=== PATIENT | male | born 1960 | race Hispanic/Latino ===

== ENCOUNTER 2018-04-29 22:11 | Inpatient (IN) | payer OTHER ==
[2018-04-29] MEDS ORDERED: Sodium Chloride 0.9% 1,000 ML IV STA (22:55)
--- NOTE | 2018-04-29 22:57 | ED PDOC ---
HPI: Male Pain Time Seen by Provider: 04/29/18 22:42 Chief Complaint (Nursing): Male Genitourinary History Per: Patient Onset/Duration Of Symptoms: Days (1) Current Symptoms Are (Timing): Still Present Severity: Moderate Quality Of Discomfort: Burning Associated Symptoms: denies: Fever, Chills Additional Complaint(s): Urgency, hematuria, dysuria x 1 day. denies fever or chills. S/p prostate biopsy 2 weeks ago was hospitalized for infection, finished PO antibiotics yesterday. Past Medical History Vital Signs: Last Vital Signs Temp 98.3 F 04/29/18 22:30 Pulse 86 04/29/18 22:30 Resp 16 04/29/18 22:30 BP 155/93 H 04/29/18 22:30 Pulse Ox 97 04/29/18 22:30 - Medical History PMH: No Chronic Diseases, Benign Prostatic Hyperplasia - Family History Family History: States: Unknown Family Hx - Allergies Allergies/Adverse Reactions: Allergies Allergy/AdvReac Type Severity Reaction Status Date / Time No Known Allergies Allergy Verified 04/29/18 22:29 Review of Systems Constitutional: Negative for: Fever, Chills Gastrointestinal: Negative for: Abdominal Pain Genitourinary Male: Positive for: Dysuria, Frequency, Hematuria Musculoskeletal: Negative for: Back Pain Physical Exam - Physical Exam Appears: Positive for: Non-toxic, No Acute Distress Skin: Positive for: Normal Color, Warm, DRY Cardiovascular/Chest: Positive for: Regular Rate, Rhythm Respiratory: Positive for: CNT, Normal Breath Sounds Gastrointestinal/Abdominal: Positive for: Bowel Sounds, Soft, Distended Male Genital Exam: Negative for: bleeding Back: Negative for: L CVA Tenderness, R CVA Tenderness - Laboratory Results Result Diagrams: 04/29/18 23:24 04/29/18 23:24 - ECG O2 Sat by Pulse Oximetry: 97 Medical Decision Making Medical Decision Making: Bladder scan reveals 8 ml post void Disposition - Clinical Impression Clinical Impression: Urinary tract infection - Patient ED Disposition Is Patient to be Admitted: Yes - Disposition Disposition Time: 23:56 Condition: FAIR Forms: [facility] (Lithuanian) - Pt Status Changed To: Hospital Disposition Of: Observation - POA Present On Arrival: None
[2018-04-29] MEDS ORDERED: Ciprofloxacin 400mg/200ml D5W 400 MG/200 ML BAG IVPB STA (23:17)
[2018-04-29] MEDS ORDERED: Ciprofloxacin 400mg/200ml D5W 400 MG/200 ML BAG IVPB ONE (23:29)
[2018-04-29 23:33] LABS: BASO # 0.1 K/uL (0.0-0.2); BASO % 0.6 % (0.0-2.0); EOS # 0.1 K/uL (0.0-0.7); EOS % 0.6 % (0.0-4.0); HEMOGLOBIN 12.9 g/dL (12.0-18.0); LYMPH # 1.1 K/uL (1.0-4.3); LYMPH % 9.9 % (20.0-40.0); MEAN CELL VOLUME 90.9 fl (80.0-94.0); MEAN CORPUSCULAR HGB CONC 34.2 g/dL (33.0-37.0); MEAN PLATELET VOLUME 7.3 fl (7.2-11.7); MONO # 0.8 K/uL (0.0-0.8); MONO % 7.4 % (0.0-10.0); NEUT % 81.5 % (50.0-75.0); NRBC % 0.1 % (0.0-0.0); PLATELET COUNT 283 K/uL (130-400); RBC 4.16 Mil/uL (4.40-5.90); RED CELL DISTRIBUTION WIDTH 13.5 % (11.5-14.5); WHITE BLOOD COUNT 11.1 K/uL (4.8-10.8)
[2018-04-29 23:43] LABS: SQUAMOUS EPITHIAL 6 /hpf (0-5); URINE BACTERIA RARE (<OCC); URINE BILIRUBIN NEGATIVE (NEGATIVE); URINE BLOOD LARGE (NEGATIVE); URINE CLARITY TURBID (Clear); URINE COLOR RED (YELLOW); URINE GLUCOSE (UA) NEG (Normal); URINE LEUKOCYTE ESTERASE MOD Leu/uL (Negative); URINE PROTEIN >=500 mg/dL (NEGATIVE); URINE UROBILINOGEN 0.2-1.0 mg/dL (0.2-1.0)
[2018-04-29 23:44] LABS: ALB/GLOB RATIO 1.1 (1.0-2.1); ALBUMIN 3.8 g/dL (3.5-5.0); ALT/SGPT 65 U/L (21-72); AST/SGOT 33 U/L (17-59); BLOOD UREA NITROGEN 13 mg/dl (9-20); GFR AFRICAN-AMERICAN > 60; GFR NON-AFRICAN AMERICAN > 60
[2018-04-30 00:11] LABS: EOSINOPHIL 1 % (0-7); LYMPHOCYTE 12 % (20-50); MONOCYTE 8 % (0-10); NEUTROPHIL 79 % (42-75); PLATELET ESTIMATE NORMAL (NORMAL); TOTAL CELLS COUNTED 100
[2018-04-30] MEDS: Levothyroxine 50 MCG TAB PO SCH (07:38)
[2018-04-30] MEDS: Ciprofloxacin 400mg/200ml D5W 400 MG/200 ML BAG IVPB SCH ×2 (09:43→20:26)
[2018-04-30] MEDS: Pantoprazole 40 mg EC Tab PO SCH (09:44)
--- NOTE | 2018-04-30 12:12 | CP.PCM.CON ---
History of Present Illness - History of Present Illness History of Present Illness: Infectious Disease Consultation Note- Asked to see this patient at the request of for UTI . HPI- Patient is a pleasant 57 year old male with pmh of BPH who underwent recent prostate Biopsy 3 weeks ago by his urologist and 3 days after the procedure pt. explains he started to experience some chills and nausea and urgency and went to see his urologist who administered IM abx at the office and instructed patient to go to hospital to be further treated with IV antibiotics. Pt. states he was at [facility] for 3 days receiving IV antibiotics and was d/ c home on oral antibiotics for another few days ( he does not recall the name of the antibiotics that he was given). he states he was on acidophilus while on antibiotics and was checked for c.diff at the other hospital and he was negative. Patient states he was doing well until yesterday during which time he started to have dysurea, urgency and also hematurea and hence he came to hospital to be further evaluated and treated. patient explains that he feels better today compared to yesterday post initiating antibiotics. he states his urine has also cleared up today . he states he also did experience some lower back pain yesterday but less today. denies any fever or chills. also pt. explains her prostate biopsy result was benign. Allergy- NKDA Review of Systems - Review of Systems Review of Systems: ROS- denies any fever or chills but had it the other day, denies any ALONSO, denies any cough or sob, denies any chest pain, mild lower abd pain, and lower right flank pian, had dysurea but less today, + urinary urgency, had hematurea but has resolved today. denies any diarrhea Past Patient History - Past Medical History & Family History Past Medical History?: Yes - Past Social History Smoking Status: Never Smoked Alcohol: Occasional Drugs: Denies Home Situation {Lives}: With Family - CARDIAC Hx Cardiac Disorders: No - PULMONARY Hx Respiratory Disorders: No - NEUROLOGICAL Hx Neurological Disorder: No - HEENT Hx HEENT Problems: No - RENAL Hx Chronic Kidney Disease: No - ENDOCRINE/METABOLIC Hx Endocrine Disorders: No - HEMATOLOGICAL/ONCOLOGICAL Hx Blood Disorders: No - INTEGUMENTARY Hx Dermatological Problems: No - MUSCULOSKELETAL/RHEUMATOLOGICAL Hx Falls: No - GASTROINTESTINAL Hx Gastrointestinal Disorders: No - GENITOURINARY/GYNECOLOGICAL Hx Genitourinary Disorders: No - PSYCHIATRIC Hx Psychophysiologic Disorder: No Hx Substance Use: No - SURGICAL HISTORY Hx Surgeries: Yes Other/Comment: Surgeries from Athletic injuries like Left shoulder rotator cuff , tendon - ANESTHESIA Hx Anesthesia: Yes Hx Anesthesia Reactions: No Hx Malignant Hyperthermia: No Has any member of the family had a problem w/ anesthesia?: No Meds Allergies/Adverse Reactions: Allergies Allergy/AdvReac Type Severity Reaction Status Date / Time No Known Allergies Allergy Verified 04/29/18 22:29 - Medications Medications: Current Medications Atorvastatin Calcium (Lipitor) 60 mg PO DAILY [facility] Last Admin: 04/30/18 09:44 Dose: 60 mg Finasteride (Proscar) 5 mg PO DAILY [facility] Last Admin: 04/30/18 09:44 Dose: 5 mg Ciprofloxacin (Cipro 400mg/200ml Dsw) 400 mg in 200 mls @ 200 mls/hr IVPB Q12 [facility] PRN Reason: Protocol Last Admin: 04/30/18 09:43 Dose: 200 mls/hr Levothyroxine Sodium (Synthroid) 50 mcg PO DAILY@0630 [facility] Last Admin: 04/30/18 07:38 Dose: 50 mcg Oxycodone/Acetaminophen (Percocet 5/325 Mg Tab) 1 tab PO Q4 PRN PRN Reason: Pain, moderate (4-7) Stop: 05/03/18 05:55 Pantoprazole Sodium (Protonix Ec Tab) 40 mg PO DAILY [facility] Last Admin: 04/30/18 09:44 Dose: 40 mg Tamsulosin HCl (Flomax) 0.8 mg PO DAILY [facility] Last Admin: 04/30/18 09:44 Dose: 0.8 mg Physical Exam - Constitutional Appears: Non-toxic, No Acute Distress - Head Exam Head Exam: ATRAUMATIC - Eye Exam Eye Exam: EOMI, PERRL - ENT Exam ENT Exam: Normal Oropharynx - Neck Exam Neck exam: Positive for: Full Rom - Respiratory Exam Respiratory Exam: Clear to Auscultation Bilateral, NORMAL BREATHING PATTERN - Cardiovascular Exam Cardiovascular Exam: RRR, +S1, +S2 - GI/Abdominal Exam GI & Abdominal Exam: Normal Bowel Sounds, Soft Additional comments: no distention minimal tenderness in Left lower abd. no guarding no rebound NO CVA tenderness - Extremities Exam Extremities exam: Positive for: normal inspection - Neurological Exam Neurological exam: Alert, Oriented x3 Results - Vital Signs Recent Vital Signs: Last Vital Signs Temp 97.7 F 04/30/18 07:45 Pulse 64 04/30/18 07:45 Resp 19 04/30/18 07:45 BP 115/74 04/30/18 07:45 Pulse Ox 95 04/30/18 07:45 - Labs Result Diagrams: 04/29/18 23:24 04/29/18 23:24 Labs: Laboratory Results - last 24 hr 04/29/18 04/29/18 04/29/18 23:24 23:24 23:24 WBC 11.1 H RBC 4.16 L Hgb 12.9 Hct 37.8 MCV 90.9 MCH 31.0 MCHC 34.2 RDW 13.5 Plt Count 283 MPV 7.3 Neut % (Auto) 81.5 H Lymph % (Auto) 9.9 L [place] % (Auto) 7.4 Eos % (Auto) 0.6 Baso % (Auto) 0.6 Neut # (Auto) 9.0 H Lymph # (Auto) 1.1 Drew # (Auto) 0.8 Eos # (Auto) 0.1 Baso # (Auto) 0.1 Neutrophils % (Manual) 79 H Lymphocytes % (Manual) 12 L Monocytes % (Manual) 8 Eosinophils % (Manual) 1 Platelet Estimate Normal RBC Morphology Normal Sodium 139 Potassium 3.7 Chloride 103 Carbon Dioxide 26 Anion Gap 14 BUN 13 Creatinine 0.8 Est GFR ( Amer) > 60 Est GFR (Non-Af Amer) > 60 Random Glucose 119 H Calcium 9.0 Total Bilirubin 0.4 AST 33 ALT 65 Alkaline Phosphatase 108 Total Protein 7.2 Albumin 3.8 Globulin 3.4 Albumin/Globulin Ratio 1.1 Urine Color Red Urine Clarity Turbid Urine pH 6.0 Ur Specific [place] 1.015 Urine Protein >=500 Urine Glucose (UA) Neg Urine Ketones Negative Urine Blood Large Urine Nitrate Negative Urine Bilirubin Negative Urine Urobilinogen 0.2-1.0 Ur Leukocyte Esterase Mod Urine RBC (Auto) 3040 H Urine Microscopic WBC 135 H Ur Squamous Epith Cells 6 H Urine Bacteria Rare Laboratory Results - last 72 hr 04/29/18 04/29/18 04/29/18 23:24 23:24 23:24 WBC 11.1 H RBC 4.16 L Hgb 12.9 Hct 37.8 MCV 90.9 MCH 31.0 MCHC 34.2 RDW 13.5 Plt Count 283 MPV 7.3 Neut % (Auto) 81.5 H Lymph % (Auto) 9.9 L [place] % (Auto) 7.4 Eos % (Auto) 0.6 Baso % (Auto) 0.6 Neut # (Auto) 9.0 H Lymph # (Auto) 1.1 Drew # (Auto) 0.8 Eos # (Auto) 0.1 Baso # (Auto) 0.1 Neutrophils % (Manual) 79 H Lymphocytes % (Manual) 12 L Monocytes % (Manual) 8 Eosinophils % (Manual) 1 Platelet Estimate Normal RBC Morphology Normal Sodium 139 Potassium 3.7 Chloride 103 Carbon Dioxide 26 Anion Gap 14 BUN 13 Creatinine 0.8 Est GFR ( Amer) > 60 Est GFR (Non-Af Amer) > 60 Random Glucose 119 H Calcium 9.0 Total Bilirubin 0.4 AST 33 ALT 65 Alkaline Phosphatase 108 Total Protein 7.2 Albumin 3.8 Globulin 3.4 Albumin/Globulin Ratio 1.1 Urine Color Red Urine Clarity Turbid Urine pH 6.0 Ur Specific [place] 1.015 Urine Protein >=500 Urine Glucose (UA) Neg Urine Ketones Negative Urine Blood Large Urine Nitrate Negative Urine Bilirubin Negative Urine Urobilinogen 0.2-1.0 Ur Leukocyte Esterase Mod Urine RBC (Auto) 3040 H Urine Microscopic WBC 135 H Ur Squamous Epith Cells 6 H Urine Bacteria Rare Assessment & Plan (1) Urinary tract infection Status: Acute (2) Prostatitis, unspecified Status: Acute (3) History of prostate biopsy Status: Acute - Assessment and Plan (Free Text) Assessment: A/P- 57 year old male with BPH with recent prostate biopsy s/p antibiotics for post biopsy UTI and was better but now again with symptoms suggestive of UTI/ prostatitis. advise to get the urine culture result along with med records from /[facility] to see which antibiotic he received there. in the meantime continue with the IV cipro pending urine cx result. Ua- pos LE and blood, nitrates- neg plan- continue with IV cipro pending cx results. await [facility] med records as well. f/u wbc closely as well. All above d/w patient and he verbalizes full understanding of all above. Thank you for allowing me to take part in the care of this patient.
--- NOTE | 2018-04-30 13:38 | CP.PCM.HP ---
History of Present Illness - History of Present Illness History of Present Illness: CC: Hematuria/Dysuria. 57 y/o M, PMHx BPH, S/P Prostate Bx 2 weeks ago, [facility] increased constant Abdominal pain lower quadrants, described as sharp, pressure type, moderate intensity 6:10, associated to dysuria, hematuria that began at 6 pm DOA. Pt finished with po abx day [employer] with no improvement. Worsening symptom: Urinary infection. Aggravated factor: Urination. Pt denied: Fever, chills, n/v/d, CP, palpitations, syncope, SOB, cough, numbness, sick contact, recent travel out of [facility]. Present on Admission - Present on Admission Any Indicators Present on Admission: No Review of Systems - Constitutional Constitutional: Other (negative) - EENT Eyes: Other (negative) Ears: Other (negative) Nose/Mouth/Throat: Other (negative) - Cardiovascular Cardiovascular: Other (negative) - Gastrointestinal Gastrointestinal: Other (negative) - Genitourinary Genitourinary: Dysuria, Hematuria - Musculoskeletal Musculoskeletal: Other (negative) - Integumentary Integumentary: Other (negative) - Neurological Neurological: Other (negative) - Psychiatric Psychiatric: Other (negative) - Endocrine Endocrine: Other (negative) - Hematologic/Lymphatic Hematologic: Other (negative) Past Patient History - Past Medical History & Family History Past Medical History?: Yes Pertinent Family History: Unknown - Past Social History Smoking Status: Never Smoked Alcohol: None Drugs: Denies Home Situation {Lives}: Alone - CARDIAC Hx Cardiac Disorders: No - PULMONARY Hx Respiratory Disorders: No - NEUROLOGICAL Hx Neurological Disorder: No - HEENT Hx HEENT Problems: No - RENAL Hx Chronic Kidney Disease: No - ENDOCRINE/METABOLIC Hx Endocrine Disorders: Yes Hx Hypothyroidism: Yes - HEMATOLOGICAL/ONCOLOGICAL Hx Blood Disorders: No - INTEGUMENTARY Hx Dermatological Problems: No - MUSCULOSKELETAL/RHEUMATOLOGICAL Hx Musculoskeletal Disorders: No Hx Falls: No - GASTROINTESTINAL Hx Gastrointestinal Disorders: No - GENITOURINARY/GYNECOLOGICAL Hx Genitourinary Disorders: Yes Hx Prostate Problems: Yes (BPH) - PSYCHIATRIC Hx Psychophysiologic Disorder: No Hx Substance Use: No - SURGICAL HISTORY Hx Surgeries: Yes Other/Comment: Surgeries from Athletic injuries like Left shoulder rotator cuff , tendon - ANESTHESIA Hx Anesthesia: Yes Hx Anesthesia Reactions: No Hx Malignant Hyperthermia: No Has any member of the family had a problem w/ anesthesia?: No Meds Allergies/Adverse Reactions: Allergies Allergy/AdvReac Type Severity Reaction Status Date / Time No Known Allergies Allergy Verified 04/29/18 22:29 Physical Exam - Constitutional Appears: No Acute Distress - Head Exam Head Exam: NORMAL INSPECTION - Eye Exam Eye Exam: PERRL - ENT Exam ENT Exam: Normal Oropharynx - Neck Exam Neck exam: Positive for: Normal Inspection - Respiratory Exam Respiratory Exam: Clear to Auscultation Bilateral - Cardiovascular Exam Cardiovascular Exam: REGULAR RHYTHM - GI/Abdominal Exam GI & Abdominal Exam: Normal Bowel Sounds, Soft, Tenderness (minimal on palpation Left lower abdomen). absent: Distended, Guarding, Rebound - Extremities Exam Extremities exam: Positive for: normal inspection - Back Exam Back exam: NORMAL INSPECTION - Neurological Exam Neurological exam: Alert, Oriented x3 Additional comments: No motor/sensory deficit. - Psychiatric Exam Psychiatric exam: Normal Mood - Skin Skin Exam: Warm Results - Vital Signs Recent Vital Signs: Last Vital Signs Temp 97.7 F 04/30/18 07:45 Pulse 64 04/30/18 07:45 Resp 19 04/30/18 07:45 BP 115/74 04/30/18 07:45 Pulse Ox 95 04/30/18 07:45 reviewed J.P. - Labs Result Diagrams: 05/01/18 05:15 05/01/18 05:15 Labs: Laboratory Results - last 24 hr 04/29/18 04/29/18 04/29/18 23:24 23:24 23:24 WBC 11.1 H RBC 4.16 L Hgb 12.9 Hct 37.8 MCV 90.9 MCH 31.0 MCHC 34.2 RDW 13.5 Plt Count 283 MPV 7.3 Neut % (Auto) 81.5 H Lymph % (Auto) 9.9 L [place] % (Auto) 7.4 Eos % (Auto) 0.6 Baso % (Auto) 0.6 Neut # (Auto) 9.0 H Lymph # (Auto) 1.1 [place] # (Auto) 0.8 Eos # (Auto) 0.1 Baso # (Auto) 0.1 Neutrophils % (Manual) 79 H Lymphocytes % (Manual) 12 L Monocytes % (Manual) 8 Eosinophils % (Manual) 1 Platelet Estimate Normal RBC Morphology Normal Sodium 139 Potassium 3.7 Chloride 103 Carbon Dioxide 26 Anion Gap 14 BUN 13 Creatinine 0.8 Est GFR ( Amer) > 60 Est GFR (Non-Af Amer) > 60 Random Glucose 119 H Calcium 9.0 Total Bilirubin 0.4 AST 33 ALT 65 Alkaline Phosphatase 108 Total Protein 7.2 Albumin 3.8 Globulin 3.4 Albumin/Globulin Ratio 1.1 Urine Color Red Urine Clarity Turbid Urine pH 6.0 Ur Specific [place] 1.015 Urine Protein >=500 Urine Glucose (UA) Neg Urine Ketones Negative Urine Blood Large Urine Nitrate Negative Urine Bilirubin Negative Urine Urobilinogen 0.2-1.0 Ur Leukocyte Esterase Mod Urine RBC (Auto) 3040 H Urine Microscopic WBC 135 H Ur Squamous Epith Cells 6 H Urine Bacteria Rare reviewed J.P. Assessment & Plan (1) Urinary tract infection Status: Acute Priority: High (2) History of prostate biopsy Status: Acute Priority: High (3) Prostatitis, unspecified Status: Acute Priority: High (4) Hypothyroidism Status: Chronic Priority: Medium (5) High cholesterol Status: Chronic Priority: Medium - Assessment and Plan (Free Text) Plan: F/u U C-S, Blood C-S, EKG, CXR, Continue Cipro, Flomax, Proscar, Percocet and rest of Tx, ID consult appreciated - Date & Time Date: 04/30/18 Time: 09:30
[2018-04-30] MEDS: Lactobacillus Acidophilus 500 MU Cap PO SCH (16:33)
[2018-04-30] MEDS ORDERED: VALACYCLOVIR HCL 500 MG PO SCH (18:04)
[2018-05-01 06:07] LABS: HEMOGLOBIN 12.9 g/dL (12.0-18.0); MEAN CELL VOLUME 90.4 fl (80.0-94.0); MEAN CORPUSCULAR HGB CONC 34.3 g/dL (33.0-37.0); RBC 4.16 Mil/uL (4.40-5.90); RED CELL DISTRIBUTION WIDTH 13.5 % (11.5-14.5); WHITE BLOOD COUNT 11.6 K/uL (4.8-10.8)
[2018-05-01] MEDS: Levothyroxine 50 MCG TAB PO SCH (06:20)
[2018-05-01 06:39] LABS: BLOOD UREA NITROGEN 8 mg/dl (9-20); CALCIUM 8.9 mg/dL (8.4-10.2); GFR AFRICAN-AMERICAN > 60; GFR NON-AFRICAN AMERICAN > 60
[2018-05-01] MEDS: Ciprofloxacin 400mg/200ml D5W 400 MG/200 ML BAG IVPB SCH ×2 (09:26→21:24)
[2018-05-01] MEDS: Lactobacillus Acidophilus 500 MU Cap PO SCH ×2 (09:26→16:55)
[2018-05-01] MEDS: Pantoprazole 40 mg EC Tab PO SCH (09:27)
--- NOTE | 2018-05-01 09:52 | CP.PCM.PN ---
Subjective - Date & Time of Evaluation Date of Evaluation: 05/01/18 Time of Evaluation: 09:52 - Subjective Subjective: ID Note- Patient seen and examined today. states he feels better compared to yesterday. denies any fever or chills. denies any dysurea, still has slight urgency. denies any diarrhea. Objective - Vital Signs/Intake and Output Vital Signs (last 24 hours): Temp Pulse Resp BP Pulse Ox 98 F 81 20 117/78 94 L 05/01/18 09:00 05/01/18 09:00 05/01/18 09:00 05/01/18 09:00 05/01/18 09:00 - Medications Medications: Current Medications Acyclovir (Zovirax) 400 mg PO BID [facility] Last Admin: 05/01/18 09:27 Dose: 400 mg Atorvastatin Calcium (Lipitor) 60 mg PO DAILY [facility] Last Admin: 05/01/18 09:27 Dose: 60 mg Finasteride (Proscar) 5 mg PO DAILY [facility] Last Admin: 05/01/18 09:27 Dose: 5 mg Ciprofloxacin (Cipro 400mg/200ml Dsw) 400 mg in 200 mls @ 200 mls/hr IVPB Q12 [facility] PRN Reason: Protocol Last Admin: 05/01/18 09:26 Dose: 200 mls/hr Lactobacillus Acidophilus (Bacid Acidophilus) 1 cap PO BID [facility] Last Admin: 05/01/18 09:26 Dose: 1 cap Levothyroxine Sodium (Synthroid) 50 mcg PO DAILY@0630 [facility] Last Admin: 05/01/18 06:20 Dose: 50 mcg Oxycodone/Acetaminophen (Percocet 5/325 Mg Tab) 1 tab PO Q4 PRN PRN Reason: Pain, moderate (4-7) Stop: 05/03/18 05:55 Pantoprazole Sodium (Protonix Ec Tab) 40 mg PO DAILY [facility] Last Admin: 05/01/18 09:27 Dose: 40 mg Tamsulosin HCl (Flomax) 0.8 mg PO DAILY [facility] Last Admin: 05/01/18 09:27 Dose: 0.8 mg - Labs Labs: - Additional Findings Additional findings: - Constitutional Appears: Non-toxic, No Acute Distress - Head Exam Head Exam: ATRAUMATIC - Eye Exam Eye Exam: EOMI, PERRL - ENT Exam ENT Exam: Normal Oropharynx - Neck Exam Neck exam: Positive for: Full Rom - Respiratory Exam Respiratory Exam: Clear to Auscultation Bilateral, NORMAL BREATHING PATTERN - Cardiovascular Exam Cardiovascular Exam: RRR, +S1, +S2 - GI/Abdominal Exam GI & Abdominal Exam: Normal Bowel Sounds, Soft Additional comments: no distention no tenderness no guarding no rebound NO CVA tenderness - Extremities Exam Extremities exam: Positive for: normal inspection - Neurological Exam Neurological exam: Alert, Oriented x 3 Laboratory Results - last 72 hr 04/29/18 04/29/18 04/29/18 23:24 23:24 23:24 WBC 11.1 H RBC 4.16 L Hgb 12.9 Hct 37.8 MCV 90.9 MCH 31.0 MCHC 34.2 RDW 13.5 Plt Count 283 MPV 7.3 Neut % (Auto) 81.5 H Lymph % (Auto) 9.9 L [place] % (Auto) 7.4 Eos % (Auto) 0.6 Baso % (Auto) 0.6 Neut # (Auto) 9.0 H Lymph # (Auto) 1.1 [place] # (Auto) 0.8 Eos # (Auto) 0.1 Baso # (Auto) 0.1 Neutrophils % (Manual) 79 H Lymphocytes % (Manual) 12 L Monocytes % (Manual) 8 Eosinophils % (Manual) 1 Platelet Estimate Normal RBC Morphology Normal Sodium 139 Potassium 3.7 Chloride 103 Carbon Dioxide 26 Anion Gap 14 BUN 13 Creatinine 0.8 Est GFR ( Amer) > 60 Est GFR (Non-Af Amer) > 60 Random Glucose 119 H Calcium 9.0 Total Bilirubin 0.4 AST 33 ALT 65 Alkaline Phosphatase 108 Total Protein 7.2 Albumin 3.8 Globulin 3.4 Albumin/Globulin Ratio 1.1 Urine Color Red Urine Clarity Turbid Urine pH 6.[address] 1.015 Urine Protein >=500 Urine Glucose (UA) Neg Urine Ketones Negative Urine Blood Large Urine Nitrate Negative Urine Bilirubin Negative Urine Urobilinogen 0.2-1.0 Ur Leukocyte Esterase Mod Urine RBC (Auto) 3040 H Urine Microscopic WBC 135 H Ur Squamous Epith Cells 6 H Urine Bacteria Rare 05/01/18 05/01/18 05:15 05:15 WBC 11.6 H RBC 4.16 L Hgb 12.9 Hct 37.6 MCV 90.4 MCH 31.0 MCHC 34.3 RDW 13.5 Plt Count 248 MPV Neut % (Auto) Lymph % (Auto) [place] % (Auto) Eos % (Auto) Baso % (Auto) Neut # (Auto) Lymph # (Auto) [place] # (Auto) Eos # (Auto) Baso # (Auto) Neutrophils % (Manual) Lymphocytes % (Manual) Monocytes % (Manual) Eosinophils % (Manual) Platelet Estimate RBC Morphology Sodium 140 Potassium 3.9 Chloride 103 Carbon Dioxide 27 Anion Gap 14 BUN 8 L Creatinine 0.8 Est GFR ( Amer) > 60 Est GFR (Non-Af Amer) > 60 Random Glucose 111 H Calcium 8.9 Total Bilirubin AST ALT Alkaline Phosphatase Total Protein Albumin Globulin Albumin/Globulin Ratio Urine Color Urine Clarity Urine pH Ur Specific Circle Urine Protein Urine Glucose (UA) Urine Ketones Urine Blood Urine Nitrate Urine Bilirubin Urine Urobilinogen Ur Leukocyte Esterase Urine RBC (Auto) Urine Microscopic WBC Ur Squamous Epith Cells Urine Bacteria Microbiology 04/29/18 23:24 Urine Urine Culture - Preliminary Gram Negative [place] 04/30/18 01:02 Blood Blood Culture - Preliminary NO GROWTH AFTER 24 HOURS 04/29/18 23:24 Blood Blood Culture - Preliminary NO GROWTH AFTER 24 HOURS Assessment and Plan (1) Urinary tract infection Status: Acute (2) Prostatitis, unspecified Status: Acute (3) History of prostate biopsy Status: Acute - Assessment and Plan (Free Text) Assessment: A/P- 57 year old male with BPH with recent prostate biopsy s/p antibiotics for post biopsy UTI and was better but now again with symptoms suggestive of UTI/ prostatitis. afebrile minimal leukocytosis Ua- pos LE and blood, nitrates- neg urine cx- prelim GNR blood and urine cx form [facility] are all negative ( record in paper chart). also pt. states he was d/c on from [facility]. plan- await ID and sensitivity of the GNR in urine cx( micro called and they state should be available by [facility]). continue with IV cipro for now pending ID and sens of GNR. day #2. If GNR is sens to cipro then can be d/c home on oral cipro for 7 days and to f/ u with his PMD and urologist as outpatient and with Me for ID. All above d/w patient and he verbalizes full understanding of all aboev and agrees with above plan of care.
--- NOTE | 2018-05-01 11:07 | RAD ---
PROCEDURE: CHEST RADIOGRAPH, 1 VIEW HISTORY: Hypothyroidism, BPH COMPARISON: None available. FINDINGS: LUNGS: The lungs are well inflated. There is linear atelectasis/ scarring in the right lower lobe. PLEURA: No pneumothorax or pleural fluid seen. CARDIOVASCULAR: Normal. OSSEOUS STRUCTURES: No significant abnormalities. VISUALIZED UPPER ABDOMEN: Normal. OTHER FINDINGS: None. IMPRESSION: No active pulmonary disease.
--- NOTE | 2018-05-01 13:40 | CP.PCM.PN ---
Subjective - Date & Time of Evaluation Date of Evaluation: 05/01/18 Time of Evaluation: 14:15 - Subjective Subjective: no abdominal pain, minimal urgency Objective - Vital Signs/Intake and Output Vital Signs (last 24 hours): Temp Pulse Resp BP Pulse Ox 98 F 81 20 117/78 94 L 05/01/18 09:00 05/01/18 09:00 05/01/18 09:00 05/01/18 09:00 05/01/18 09:00 - Medications Medications: Current Medications Acyclovir (Zovirax) 400 mg PO BID [facility] Last Admin: 05/01/18 09:27 Dose: 400 mg Atorvastatin Calcium (Lipitor) 60 mg PO DAILY [facility] Last Admin: 05/01/18 09:27 Dose: 60 mg Finasteride (Proscar) 5 mg PO DAILY [facility] Last Admin: 05/01/18 09:27 Dose: 5 mg Ciprofloxacin (Cipro 400mg/200ml Dsw) 400 mg in 200 mls @ 200 mls/hr IVPB Q12 [facility] PRN Reason: Protocol Last Admin: 05/01/18 09:26 Dose: 200 mls/hr Lactobacillus Acidophilus (Bacid Acidophilus) 1 cap PO BID [facility] Last Admin: 05/01/18 09:26 Dose: 1 cap Levothyroxine Sodium (Synthroid) 50 mcg PO DAILY@0630 [facility] Last Admin: 05/01/18 06:20 Dose: 50 mcg Oxycodone/Acetaminophen (Percocet 5/325 Mg Tab) 1 tab PO Q4 PRN PRN Reason: Pain, moderate (4-7) Stop: 05/03/18 05:55 Pantoprazole Sodium (Protonix Ec Tab) 40 mg PO DAILY [facility] Last Admin: 05/01/18 09:27 Dose: 40 mg Tamsulosin HCl (Flomax) 0.8 mg PO DAILY [facility] Last Admin: 05/01/18 09:27 Dose: 0.8 mg - Labs Labs: 05/01/18 05:15 05/01/18 05:15 - Constitutional Appears: No Acute Distress - Head Exam Head Exam: NORMOCEPHALIC - Eye Exam Eye Exam: PERRL - ENT Exam ENT Exam: Normal Exam - Neck Exam Neck Exam: Normal Inspection - Respiratory Exam Respiratory Exam: Clear to Ausculation Bilateral - Cardiovascular Exam Cardiovascular Exam: REGULAR RHYTHM - GI/Abdominal Exam GI & Abdominal Exam: Soft, Normal Bowel Sounds - Extremities Exam Extremities Exam: Normal Inspection - Back Exam Back Exam: NORMAL INSPECTION - Neurological Exam Neurological Exam: Alert, CN II-XII Intact, Oriented x3. absent: Motor Sensory Deficit - Psychiatric Exam Psychiatric exam: Normal Affect - Skin Skin Exam: Warm Assessment and Plan (1) Urinary tract infection Status: Acute (2) History of prostate biopsy Status: Acute (3) Prostatitis, unspecified Status: Acute (4) Hypothyroidism Status: Chronic (5) High cholesterol Status: Chronic - Assessment and Plan (Free Text) Plan: Cipro , f/u UC-S, continue rest of Tx , ID f/u appreciated
[2018-05-01] MEDS: Oxycodone/Acetaminophen 5/325 mg Tab PO PRN (18:03)
[2018-05-02] MEDS: Levothyroxine 50 MCG TAB PO SCH (06:26)
[2018-05-02] MEDS: Pantoprazole 40 mg EC Tab PO SCH (09:46)
[2018-05-02] MEDS: Lactobacillus Acidophilus 500 MU Cap PO SCH ×2 (09:46→16:36)
[2018-05-02] MEDS: Ciprofloxacin 400mg/200ml D5W 400 MG/200 ML BAG IVPB SCH (09:48)
--- NOTE | 2018-05-02 12:04 | CP.PCM.PN ---
Subjective - Date & Time of Evaluation Date of Evaluation: 05/02/18 Time of Evaluation: 12:04 - Subjective Subjective: ID Note- Patient seen and examined today. Patient states he feels better. denies any fever or chills. denies any back or abd pain. slight urgency persists but better than before. Objective - Vital Signs/Intake and Output Vital Signs (last 24 hours): Temp Pulse Resp BP Pulse Ox 99 F 89 20 111/70 96 05/02/18 08:31 05/02/18 08:31 05/02/18 08:31 05/02/18 08:31 05/02/18 08:31 - Medications Medications: Current Medications Atorvastatin Calcium (Lipitor) 60 mg PO DAILY [facility] Last Admin: 05/02/18 09:46 Dose: 60 mg Finasteride (Proscar) 5 mg PO DAILY [facility] Last Admin: 05/02/18 09:46 Dose: 5 mg Ciprofloxacin (Cipro 400mg/200ml Dsw) 400 mg in 200 mls @ 200 mls/hr IVPB Q12 [facility] PRN Reason: Protocol Last Admin: 05/02/18 09:48 Dose: 200 mls/hr Lactobacillus Acidophilus (Bacid Acidophilus) 1 cap PO BID [facility] Last Admin: 05/02/18 09:46 Dose: 1 cap Levothyroxine Sodium (Synthroid) 50 mcg PO DAILY@0630 [facility] Last Admin: 05/02/18 06:26 Dose: 50 mcg Oxycodone/Acetaminophen (Percocet 5/325 Mg Tab) 1 tab PO Q4 PRN PRN Reason: Pain, moderate (4-7) Stop: 05/03/18 05:55 Last Admin: 05/01/18 18:03 Dose: 1 tab Pantoprazole Sodium (Protonix Ec Tab) 40 mg PO DAILY [facility] Last Admin: 05/02/18 09:46 Dose: 40 mg Tamsulosin HCl (Flomax) 0.8 mg PO DAILY [facility] Last Admin: 05/02/18 09:46 Dose: 0.8 mg - Labs Labs: - Additional Findings Additional findings: - Constitutional Appears: Non-toxic, No Acute Distress - Head Exam Head Exam: ATRAUMATIC - Eye Exam Eye Exam: EOMI, PERRL - ENT Exam ENT Exam: Normal Oropharynx - Neck Exam Neck exam: Positive for: Full Rom - Respiratory Exam Respiratory Exam: Clear to Auscultation Bilateral, NORMAL BREATHING PATTERN - Cardiovascular Exam Cardiovascular Exam: RRR, +S1, +S2 - GI/Abdominal Exam GI & Abdominal Exam: Normal Bowel Sounds, Soft Additional comments: no distention no tenderness no guarding no rebound NO CVA tenderness - Extremities Exam Extremities exam: Positive for: normal inspection - Neurological Exam Neurological exam: Alert, Oriented x 3 Laboratory Results - last 72 hr 04/29/18 04/29/18 04/29/18 23:24 23:24 23:24 WBC 11.1 H RBC 4.16 L Hgb 12.9 Hct 37.8 MCV 90.9 MCH 31.0 MCHC 34.2 RDW 13.5 Plt Count 283 MPV 7.3 Neut % (Auto) 81.5 H Lymph % (Auto) 9.9 L [place] % (Auto) 7.4 Eos % (Auto) 0.6 Baso % (Auto) 0.6 Neut # (Auto) 9.0 H Lymph # (Auto) 1.1 [place] # (Auto) 0.8 Eos # (Auto) 0.1 Baso # (Auto) 0.1 Neutrophils % (Manual) 79 H Lymphocytes % (Manual) 12 L Monocytes % (Manual) 8 Eosinophils % (Manual) 1 Platelet Estimate Normal RBC Morphology Normal Sodium 139 Potassium 3.7 Chloride 103 Carbon Dioxide 26 Anion Gap 14 BUN 13 Creatinine 0.8 Est GFR ( Amer) > 60 Est GFR (Non-Af Amer) > 60 Random Glucose 119 H Calcium 9.0 Total Bilirubin 0.4 AST 33 ALT 65 Alkaline Phosphatase 108 Total Protein 7.2 Albumin 3.8 Globulin 3.4 Albumin/Globulin Ratio 1.1 Urine Color Red Urine Clarity Turbid Urine pH 6.0 Ur Specific [place] 1.015 Urine Protein >=500 Urine Glucose (UA) Neg Urine Ketones Negative Urine Blood Large Urine Nitrate Negative Urine Bilirubin Negative Urine Urobilinogen 0.2-1.0 Ur Leukocyte Esterase Mod Urine RBC (Auto) 3040 H Urine Microscopic WBC 135 H Ur Squamous Epith Cells 6 H Urine Bacteria Rare 05/01/18 05/01/18 05:15 05:15 WBC 11.6 H RBC 4.16 L Hgb 12.9 Hct 37.6 MCV 90.4 MCH 31.0 MCHC 34.3 RDW 13.5 Plt Count 248 MPV Neut % (Auto) Lymph % (Auto) [place] % (Auto) Eos % (Auto) Baso % (Auto) Neut # (Auto) Lymph # (Auto) [place] # (Auto) Eos # (Auto) Baso # (Auto) Neutrophils % (Manual) Lymphocytes % (Manual) Monocytes % (Manual) Eosinophils % (Manual) Platelet Estimate RBC Morphology Sodium 140 Potassium 3.9 Chloride 103 Carbon Dioxide 27 Anion Gap 14 BUN 8 L Creatinine 0.8 Est GFR ( Amer) > 60 Est GFR (Non-Af Amer) > 60 Random Glucose 111 H Calcium 8.9 Total Bilirubin AST ALT Alkaline Phosphatase Total Protein Albumin Globulin Albumin/Globulin Ratio Urine Color Urine Clarity Urine pH Ur Specific [place] Urine Protein Urine Glucose (UA) Urine Ketones Urine Blood Urine Nitrate Urine Bilirubin Urine Urobilinogen Ur Leukocyte Esterase Urine RBC (Auto) Urine Microscopic WBC Ur Squamous Epith Cells Urine Bacteria Microbiology 04/29/18 23:24 Urine Urine Culture - Final Escherichia Coli 04/30/18 01:02 Blood Blood Culture - Preliminary NO GROWTH AFTER 48 HOURS 04/29/18 23:24 Blood Blood Culture - Preliminary NO GROWTH AFTER 48 HOURS Assessment and Plan (1) Urinary tract infection Status: Acute (2) Prostatitis, unspecified Status: Acute (3) History of prostate biopsy Status: Acute - Assessment and Plan (Free Text) Assessment: A/P- 57 year old male with BPH with recent prostate biopsy s/p antibiotics for post biopsy UTI and was better but now again with symptoms suggestive of UTI/ prostatitis. afebrile minimal leukocytosis Ua- pos LE and blood, nitrates- neg urine cx- e.coli resistant to cipro , sens to carbapenems and nitrofurantoin blood and urine cx form [facility] are all negative ( record in paper chart). also pt. states he was d/c on augementin from [facility]. plan- advised pt. vitor he ahd recent prostate Biopsy and + UA and UTi symptoms and the fact that the e.coli is resistant to cipro based on micro report advise to receive 2-3 days of IV meropenem to resolve UTI /prostatitis and then if he is well he can be d/c on the oral nitrofurantoin for another 10 days. All above d/w patient and he verbalizes full understanding of all above and agrees with above plan of care.
--- NOTE | 2018-05-02 12:59 | CARD ---
APPROVED REPORT EKG Measurement Heart [id number] <Conclusion> Normal sinus rhythm Normal ECG
[2018-05-02] MEDS: Meropenem 1 GM in Sodium Chloride 0.9% 100 ML IVPB SCH (16:35)
--- NOTE | 2018-05-02 17:37 | CP.PCM.PN ---
Subjective - Date & Time of Evaluation Date of Evaluation: 05/02/18 Time of Evaluation: 10:00 - Subjective Subjective: no AD , no abdominal pain, minimal urgency Objective - Vital Signs/Intake and Output Vital Signs (last 24 hours): Temp Pulse Resp BP Pulse Ox 99.1 F 82 20 114/76 95 05/02/18 16:03 05/02/18 16:03 05/02/18 16:03 05/02/18 16:03 05/02/18 16:03 - Medications Medications: Current Medications Atorvastatin Calcium (Lipitor) 60 mg PO DAILY [facility] Last Admin: 05/02/18 09:46 Dose: 60 mg Finasteride (Proscar) 5 mg PO DAILY [facility] Last Admin: 05/02/18 09:46 Dose: 5 mg Meropenem 1 gm/ Sodium (Chloride) 100 mls @ 100 mls/hr IVPB Q8 [facility] PRN Reason: Protocol Last Admin: 05/02/18 16:35 Dose: 100 mls/hr Lactobacillus Acidophilus (Bacid Acidophilus) 1 cap PO BID [facility] Last Admin: 05/02/18 16:36 Dose: 1 cap Levothyroxine Sodium (Synthroid) 50 mcg PO DAILY@0630 [facility] Last Admin: 05/02/18 06:26 Dose: 50 mcg Oxycodone/Acetaminophen (Percocet 5/325 Mg Tab) 1 tab PO Q4 PRN PRN Reason: Pain, moderate (4-7) Stop: 05/03/18 05:55 Last Admin: 05/01/18 18:03 Dose: 1 tab Pantoprazole Sodium (Protonix Ec Tab) 40 mg PO DAILY [facility] Last Admin: 05/02/18 09:46 Dose: 40 mg Tamsulosin HCl (Flomax) 0.8 mg PO DAILY [facility] Last Admin: 05/02/18 09:46 Dose: 0.8 mg - Labs Labs: 05/01/18 05:15 05/01/18 05:15 - Constitutional Appears: No Acute Distress - Head Exam Head Exam: NORMAL INSPECTION - Eye Exam Eye Exam: PERRL - ENT Exam ENT Exam: Normal Exam - Neck Exam Neck Exam: Normal Inspection - Respiratory Exam Respiratory Exam: NORMAL BREATHING PATTERN - Cardiovascular Exam Cardiovascular Exam: REGULAR RHYTHM - GI/Abdominal Exam GI & Abdominal Exam: Soft, Normal Bowel Sounds - Extremities Exam Extremities Exam: Normal Inspection - Back Exam Back Exam: NORMAL INSPECTION - Neurological Exam Neurological Exam: Alert, CN II-XII Intact, Oriented x3. absent: Motor Sensory Deficit - Psychiatric Exam Psychiatric exam: Normal Affect, Normal Mood - Skin Skin Exam: Warm Assessment and Plan (1) Urinary tract infection Assessment & Plan: E Salima , Cara Bang Status: Acute (2) History of prostate biopsy Status: Acute (3) Prostatitis, unspecified Status: Acute (4) Hypothyroidism Status: Chronic (5) High cholesterol Status: Chronic - Assessment and Plan (Free Text) Plan: UC-S E Coli C-S S to [place], R to [facility] FELICIANO , continue Flomax , Proscar and rest of treatment, ID f/u appreciated
[2018-05-02] MEDS: Oxycodone/Acetaminophen 5/325 mg Tab PO PRN (18:41)
[2018-05-03] MEDS: Meropenem 1 GM in Sodium Chloride 0.9% 100 ML IVPB SCH ×3 (00:38→16:39)
[2018-05-03] MEDS: Levothyroxine 50 MCG TAB PO SCH (05:46)
[2018-05-03 07:29] LABS: BASO # 0.1 K/uL (0.0-0.2); BASO % 0.6 % (0.0-2.0); EOS # 0.2 K/uL (0.0-0.7); EOS % 1.7 % (0.0-4.0); HEMOGLOBIN 13.6 g/dL (12.0-18.0); LYMPH # 1.3 K/uL (1.0-4.3); LYMPH % 14.4 % (20.0-40.0); MEAN CELL VOLUME 90.8 fl (80.0-94.0); MEAN CORPUSCULAR HEMOGLOBIN 30.9 pg (27.0-31.0); MEAN PLATELET VOLUME 7.7 fl (7.2-11.7); MONO # 0.8 K/uL (0.0-0.8); MONO % 8.7 % (0.0-10.0); NEUT # 6.7 K/uL (1.8-7.0); NEUT % 74.6 % (50.0-75.0); RBC 4.39 Mil/uL (4.40-5.90)
[2018-05-03] MEDS: Lactobacillus Acidophilus 500 MU Cap PO SCH ×2 (10:06→16:39)
[2018-05-03] MEDS: Pantoprazole 40 mg EC Tab PO SCH (10:08)
--- NOTE | 2018-05-03 15:29 | CP.PCM.PN ---
Subjective - Date & Time of Evaluation Date of Evaluation: 05/03/18 Time of Evaluation: 17:00 - Subjective Subjective: F/U UTI No A/D, no lower abdominal or back pain, urine clear. Objective - Vital Signs/Intake and Output Vital Signs (last 24 hours): Temp Pulse Resp BP Pulse Ox 97.8 F 66 20 106/69 93 L 05/03/18 08:19 05/03/18 08:19 05/03/18 08:19 05/03/18 08:19 05/03/18 08:19 - Medications Medications: Current Medications Atorvastatin Calcium (Lipitor) 60 mg PO DAILY [facility] Last Admin: 05/03/18 10:08 Dose: 60 mg Finasteride (Proscar) 5 mg PO DAILY [facility] Last Admin: 05/03/18 10:07 Dose: 5 mg Meropenem 1 gm/ Sodium (Chloride) 100 mls @ 100 mls/hr IVPB Q8 [facility] PRN Reason: Protocol Last Admin: 05/03/18 10:06 Dose: 100 mls/hr Lactobacillus Acidophilus (Bacid Acidophilus) 1 cap PO BID [facility] Last Admin: 05/03/18 10:06 Dose: 1 cap Levothyroxine Sodium (Synthroid) 50 mcg PO DAILY@0630 [facility] Last Admin: 05/03/18 05:46 Dose: 50 mcg Pantoprazole Sodium (Protonix Ec Tab) 40 mg PO DAILY [facility] Last Admin: 05/03/18 10:08 Dose: 40 mg Tamsulosin HCl (Flomax) 0.8 mg PO DAILY [facility] Last Admin: 05/03/18 10:08 Dose: 0.8 mg - Labs Labs: 05/03/18 05:30 05/01/18 05:15 - Constitutional Appears: No Acute Distress - Head Exam Head Exam: NORMAL INSPECTION - Eye Exam Eye Exam: PERRL - ENT Exam ENT Exam: Normal Exam - Neck Exam Neck Exam: Normal Inspection - Respiratory Exam Respiratory Exam: NORMAL BREATHING PATTERN - Cardiovascular Exam Cardiovascular Exam: REGULAR RHYTHM - GI/Abdominal Exam GI & Abdominal Exam: Soft, Normal Bowel Sounds - Extremities Exam Extremities Exam: Normal Inspection - Back Exam Back Exam: NORMAL INSPECTION - Neurological Exam Neurological Exam: Alert, CN II-XII Intact, Oriented x3. absent: Motor Sensory Deficit - Psychiatric Exam Psychiatric exam: Normal Affect, Normal Mood - Skin Skin Exam: Warm Assessment and Plan (1) Urinary tract infection Status: Acute (2) History of prostate biopsy Status: Acute (3) Prostatitis, unspecified Status: Acute (4) Hypothyroidism Status: Chronic (5) High cholesterol Status: Chronic - Assessment and Plan (Free Text) Plan: Continue Merrem, Flomax, Proscar and rest of Tx.
[2018-05-04] MEDS: Meropenem 1 GM in Sodium Chloride 0.9% 100 ML IVPB SCH ×3 (00:35→15:14)
[2018-05-04] MEDS: Levothyroxine 50 MCG TAB PO SCH (06:34)
[2018-05-04 07:59] VITALS: BP 131/85; PULSE 63; RESP 19; TEMP 97.4; O2SAT 96
[2018-05-04] MEDS: Lactobacillus Acidophilus 500 MU Cap PO SCH ×2 (08:53→16:01)
[2018-05-04] MEDS: Pantoprazole 40 mg EC Tab PO SCH (08:54)
--- NOTE | 2018-05-04 11:07 | CP.PCM.PN ---
Subjective - Date & Time of Evaluation Date of Evaluation: 05/04/18 Time of Evaluation: 11:07 - Subjective Subjective: ID note- Pt. seen and examined today . Pt. states he feels well and denies any fever or chills, denies any dysurea, denies any lower abd or back pain. Objective - Vital Signs/Intake and Output Vital Signs (last 24 hours): Temp Pulse Resp BP Pulse Ox 97.4 F L 63 19 131/85 96 05/04/18 07:58 05/04/18 07:58 05/04/18 07:58 05/04/18 07:58 05/04/18 07:58 - Medications Medications: Current Medications Atorvastatin Calcium (Lipitor) 60 mg PO DAILY [facility] Last Admin: 05/04/18 08:54 Dose: 60 mg Finasteride (Proscar) 5 mg PO DAILY [facility] Last Admin: 05/04/18 08:54 Dose: 5 mg Meropenem 1 gm/ Sodium (Chloride) 100 mls @ 100 mls/hr IVPB Q8 [facility] PRN Reason: Protocol Last Admin: 05/04/18 08:54 Dose: 100 mls/hr Lactobacillus Acidophilus (Bacid Acidophilus) 1 cap PO BID [facility] Last Admin: 05/04/18 08:53 Dose: 1 cap Levothyroxine Sodium (Synthroid) 50 mcg PO DAILY@0630 [facility] Last Admin: 05/04/18 06:34 Dose: 50 mcg Pantoprazole Sodium (Protonix Ec Tab) 40 mg PO DAILY [facility] Last Admin: 05/04/18 08:54 Dose: 40 mg Tamsulosin HCl (Flomax) 0.8 mg PO DAILY [facility] Last Admin: 05/04/18 08:53 Dose: 0.8 mg - Labs Labs: - Additional Findings Additional findings: - Constitutional Appears: Non-toxic, No Acute Distress - Head Exam Head Exam: ATRAUMATIC - Eye Exam Eye Exam: EOMI, PERRL - ENT Exam ENT Exam: Normal Oropharynx - Neck Exam Neck exam: Positive for: Full Rom - Respiratory Exam Respiratory Exam: Clear to Auscultation Bilateral, NORMAL BREATHING PATTERN - Cardiovascular Exam Cardiovascular Exam: RRR, +S1, +S2 - GI/Abdominal Exam GI & Abdominal Exam: Normal Bowel Sounds, Soft Additional comments: no distention no tenderness no guarding no rebound NO CVA tenderness - Extremities Exam Extremities exam: Positive for: normal inspection - Neurological Exam Neurological exam: Alert, Oriented x 3 Laboratory Results - last 72 hr 05/03/18 05:30 WBC 9.0 RBC 4.39 L Hgb 13.6 Hct 39.9 MCV 90.8 MCH 30.9 MCHC 34.0 RDW 13.0 Plt Count 268 MPV 7.7 Neut % (Auto) 74.6 Lymph % (Auto) 14.4 L [place] % (Auto) 8.7 Eos % (Auto) 1.7 Baso % (Auto) 0.6 Neut # (Auto) 6.7 Lymph # (Auto) 1.3 [place] # (Auto) 0.8 Eos # (Auto) 0.2 Baso # (Auto) 0.1 Microbiology 04/30/18 01:02 Blood Blood Culture - Preliminary NO GROWTH AFTER 4 DAYS 04/29/18 23:24 Blood Blood Culture - Preliminary NO GROWTH AFTER 4 DAYS 04/29/18 23:24 Urine Urine Culture - Final Escherichia Coli Accession No. : [id number] Patient Name / ID : COLUMBA Morales / [id number] Exam Date : 05/01/2018 08:31:31 ( Approved ) Study Comment : Sex / Age : M / 57Y Creator : Romy Rodriguez MD Dictator : Romy Rodriguez MD Plant Nursery Worker : Electric Organ Inspector And Repairer : Romy Rodriguez MD Approver2 : Report Date : 05/01/2018 11:00:50 My Comment : PROCEDURE: CHEST RADIOGRAPH, 1 VIEW HISTORY: Hypothyroidism, BPH COMPARISON: None available. FINDINGS: LUNGS: The lungs are well inflated. There is linear atelectasis/ scarring in the right lower lobe. PLEURA: No pneumothorax or pleural fluid seen. CARDIOVASCULAR: Normal. OSSEOUS STRUCTURES: No significant abnormalities. VISUALIZED UPPER ABDOMEN: Normal. OTHER FINDINGS: None. IMPRESSION: No active pulmonary disease. Assessment and Plan (1) Urinary tract infection Status: Acute (2) Prostatitis, unspecified Status: Acute (3) History of prostate biopsy Status: Acute - Assessment and Plan (Free Text) Assessment: A/P- 57 year old male with BPH with recent prostate biopsy s/p antibiotics for post biopsy UTI and was better but now again with symptoms suggestive of UTI/ prostatitis. clinically much better. afebrile minimal leukocytosis has resolved. Ua- pos LE and blood, nitrates- neg urine cx- e.coli resistant to cipro , sens to carbapenems and nitrofurantoin blood and urine cx form [facility] are all negative ( record in paper chart). also pt. states he was d/c on augementin from [facility]. Plan- Pt. has completed 3 days of Iv meroepenm for e.coli UTI/prostatitis. clinically much improved. he can be d/c on the oral nitrofurantoin 100 mg q12 hours for another 10-14 days. the e.coli was sensitive to nitrofurantoin. advised pt. to f/u with his urologist and PMD and Me as outpatient. Advised pt. if he develops any dysurea, hematurea or fever or chills, or nausea or abd pain to either go to his PMD /urologist or return to ER. All above d/w patient and he verbalizes full understanding of all above and agrees with above plan of care.
--- NOTE | 2018-05-04 23:04 | CP.PCM.DIS ---
Provider - Provider Date of Admission: 05/02/18 20:22 Attending physician: Gonzalez Saldivar MD Primary care physician: Hieu Chahal MD Diagnosis - Discharge Diagnosis (1) Urinary tract infection Status: Acute Priority: High (2) History of prostate biopsy Status: Acute Priority: High (3) Prostatitis, unspecified Status: Acute Priority: High (4) Hypothyroidism Status: Chronic Priority: Medium (5) High cholesterol Status: Chronic Priority: Medium Hospital Course - Lab Results Lab Results: Micro Results 04/30/18 01:02 Blood Blood Culture - Preliminary NO GROWTH AFTER 4 DAYS 04/29/18 23:24 Blood Blood Culture - Preliminary NO GROWTH AFTER 4 DAYS 04/29/18 23:24 Urine Urine Culture - Final Escherichia Coli Most Recent Lab Values WBC 9.0 K/uL (4.8-10.8) 05/03/18 05:30 RBC 4.39 Mil/uL (4.40-5.90) L 05/03/18 05:30 Hgb 13.6 g/dL (12.0-18.0) 05/03/18 05:30 Hct 39.9 % (35.0-51.0) 05/03/18 05:30 MCV 90.8 fl (80.0-94.0) 05/03/18 05:30 MCH 30.9 pg (27.0-31.0) 05/03/18 05:30 MCHC 34.0 g/dL (33.0-37.0) 05/03/18 05:30 RDW 13.0 % (11.5-14.5) 05/03/18 05:30 Plt Count 268 K/uL (130-400) 05/03/18 05:30 MPV 7.7 fl (7.2-11.7) 05/03/18 05:30 Neut % (Auto) 74.6 % (50.0-75.0) 05/03/18 05:30 Lymph % (Auto) 14.4 % (20.0-40.0) L 05/03/18 05:30 [place] % (Auto) 8.7 % (0.0-10.0) 05/03/18 05:30 Eos % (Auto) 1.7 % (0.0-4.0) 05/03/18 05:30 Baso % (Auto) 0.6 % (0.0-2.0) 05/03/18 05:30 Neut # (Auto) 6.7 K/uL (1.8-7.0) 05/03/18 05:30 Lymph # (Auto) 1.3 K/uL (1.0-4.3) 05/03/18 05:30 [place] # (Auto) 0.8 K/uL (0.0-0.8) 05/03/18 05:30 Eos # (Auto) 0.2 K/uL (0.0-0.7) 05/03/18 05:30 Baso # (Auto) 0.1 K/uL (0.0-0.2) 05/03/18 05:30 Neutrophils % (Manual) 79 % (42-75) H 04/29/18 23:24 Lymphocytes % (Manual) 12 % (20-50) L 04/29/18 23:24 Monocytes % (Manual) 8 % (0-10) 04/29/18 23:24 Eosinophils % (Manual) 1 % (0-7) 04/29/18 23:24 Platelet Estimate Normal (NORMAL) 04/29/18 23:24 RBC Morphology Normal (NORMAL) 04/29/18 23:24 Sodium 140 mmol/l (132-148) 05/01/18 05:15 Potassium 3.9 MMOL/L (3.6-5.0) 05/01/18 05:15 Chloride 103 mmol/L (98-107) 05/01/18 05:15 Carbon Dioxide 27 mmol/L (22-30) 05/01/18 05:15 Anion Gap 14 (10-20) 05/01/18 05:15 BUN 8 mg/dl (9-20) L 05/01/18 05:15 Creatinine 0.8 mg/dl (0.8-1.5) 05/01/18 05:15 Est GFR ( Amer) > 60 05/01/18 05:15 Est GFR (Non-Af Amer) > 60 05/01/18 05:15 Random Glucose 111 mg/dL (75-110) H 05/01/18 05:15 Calcium 8.9 mg/dL (8.4-10.2) 05/01/18 05:15 Total Bilirubin 0.4 mg/dl (0.2-1.3) 04/29/18 23:24 AST 33 U/L (17-59) 04/29/18 23:24 ALT 65 U/L (21-72) 04/29/18 23:24 Alkaline Phosphatase 108 U/L (38-126) 04/29/18 23:24 Total Protein 7.2 G/DL (6.3-8.2) 04/29/18 23:24 Albumin 3.8 g/dL (3.5-5.0) 04/29/18 23:24 Globulin 3.4 gm/dL (2.2-3.9) 04/29/18 23:24 Albumin/Globulin Ratio 1.1 (1.0-2.1) 04/29/18 23:24 Urine Color Red (YELLOW) 04/29/18 23:24 Urine Clarity Turbid (Clear) 04/29/18 23:24 Urine pH 6.0 (5.0-8.0) 04/29/18 23:24 Ur Specific [place] 1.015 (1.003-1.030) 04/29/18 23:24 Urine Protein >=500 mg/dL (NEGATIVE) 04/29/18 23:24 Urine Glucose (UA) Neg mg/dL (Normal) 04/29/18 23:24 Urine Ketones Negative mg/dL (NEGATIVE) 04/29/18 23:24 Urine Blood Large (NEGATIVE) 04/29/18 23:24 Urine Nitrate Negative (NEGATIVE) 04/29/18 23:24 Urine Bilirubin Negative (NEGATIVE) 04/29/18 23:24 Urine Urobilinogen 0.2-1.0 mg/dL (0.2-1.0) 04/29/18 23:24 Ur Leukocyte Esterase Mod [place]/uL (Negative) 04/29/18 23:24 Urine RBC (Auto) 3040 /hpf (0-3) H 04/29/18 23:24 Urine Microscopic WBC 135 /hpf (0-5) H 04/29/18 23:24 Ur Squamous Epith Cells 6 /hpf (0-5) H 04/29/18 23:24 Urine Bacteria Rare (<OCC) 04/29/18 23:24 Discharge Exam - Head Exam Head Exam: NORMAL INSPECTION Discharge Plan - Discharge Medications Prescriptions: Lactobacillus Acidophilus [Bacid Acidophilus] 1 cap PO BID #20 cap Nitrofurantoin Macrocrystals [Macrobid] 100 mg PO Q12 #20 cap - Follow Up Plan Condition: FAIR Disposition: HOME/ ROUTINE Instructions: Prostatitis (DC), Urinary Tract Infection in Men (DC) Additional Instructions: patient cleared for discharge to Home today after afternoon dose of iv merrem cont. Macrobid 100 mg po bid for 10 more days - Rx sent to [facility] pt. instructed to f/u with CARLOS Hernandez and urologist outpatient follow up with primary MD and Urologist 1 week Referrals: Kiarra Jerry MD [Staff Provider] - Hieu Chahal MD [Primary Care Provider] - Irving Warren MD [Medical Doctor] -
== END 2018-05-04 16:23 | disposition home or self-care (01) | DRG 690 ==
LOC: H.ER 22:11 → H.ERHOLD 23:53 → H.MEDSURG1 04-30 02:29 → OBSVTOIN 05-02 20:22
PROVIDERS: ADMIT Internal Medicine Pulmonary Disease; ATTEND Internal Medicine Pulmonary Disease
DX: N39.0 Urinary tract infection, site not specified (principal); E78.00 Pure hypercholesterolemia, unspecified; E03.9 Hypothyroidism, unspecified; N41.9 Inflammatory disease of prostate, unspecified; N40.0 Benign prostatic hyperplasia without lower urinary tract symptoms